=== PATIENT | male | born 1975 | race Two or more races ===

== ENCOUNTER 2020-09-17 08:48 | Emergency (ER) | payer OTHER ==
[~2020-09-17] VITALS: Ht 182.9 cm; Wt 122.5 kg
[2020-09-17] MEDS ORDERED: BAMLANIVIMAB 700MG/200ML 200 ML IV ONE (11:00)
[2020-09-17] MEDS ORDERED: ACETAMINOPHEN 325 MG TAB PO ONE (12:00)
[2020-09-17 13:39] VITALS: BP 136/78
== END 2020-09-17 13:56 | disposition home or self-care (01) ==
LOC: ER 08:48
DX: U07.1 COVID-19 (principal); J45.909 Unspecified asthma, uncomplicated
CPT/HCPCS: 71045; 99284; M0239; Q0239